=== PATIENT | female | born 2000 | race Caucasian/White ===

== ENCOUNTER 2023-05-28 17:48 | Emergency (ER) | payer OTHER ==
[~2023-05-28] VITALS: Ht 152.4 cm; Wt 106.6 kg
[2023-05-28 18:02] VITALS: BP 130/76; TEMP 98.2; O2SAT 98
[2023-05-28] MEDS ORDERED: KETOROLAC TROMETHAMINE 15 MG/ML VIAL IM ONE (18:30)
[2023-05-28] MEDS ORDERED: ACETAMINOPHEN 325 MG TABLET PO ONE (18:30)
== END 2023-05-28 21:17 | disposition left against medical advice (07) ==
LOC: ER 17:58
DX: M25.562 Pain in left knee (principal); M79.632 Pain in left forearm; R07.81 Pleurodynia; W01.0XXA Fall on same level from slipping, tripping and stumbling without subsequent striking against object, initial encounter; Y93.01 Activity, walking, marching and hiking; Y92.89 Other specified places as the place of occurrence of the external cause; Y99.8 Other external cause status

== ENCOUNTER 2023-05-29 14:38 | Emergency (ER) | payer OTHER ==
[~2023-05-29] VITALS: Ht 157.5 cm; Wt 90.7 kg
[2023-05-29] MEDS ORDERED: IBUPROFEN 400 MG TABLET PO ONE (15:00)
[2023-05-29] MEDS ORDERED: IBUPROFEN 400 MG TABLET ONE (15:05)
[2023-05-29 16:06] VITALS: BP 131/62; TEMP 98.6; O2SAT 100
== END 2023-05-29 16:06 | disposition home or self-care (01) ==
LOC: ER 14:51
DX: R07.81 Pleurodynia (principal); M25.562 Pain in left knee; M79.632 Pain in left forearm; W01.0XXA Fall on same level from slipping, tripping and stumbling without subsequent striking against object, initial encounter; Y93.89 Activity, other specified; Y92.89 Other specified places as the place of occurrence of the external cause; Y99.8 Other external cause status
CPT/HCPCS: 71100-TC; 73090-TC; 73564-TC